=== PATIENT | male | born 1955 | race Caucasian/White ===

== ENCOUNTER 2020-10-17 14:29 | Emergency (ER) | payer OTHER ==
--- NOTE | 2020-10-17 15:10 | EDM.PDOC ---
ED HPI GENERAL MEDICAL PROBLEM - General Stated Complaint: UNRESPONSIVE Time Seen by Provider: 10/17/20 14:30 Source of Information: Reports: EMS History Limitations: Reports: Other - History of Present Illness INITIAL COMMENTS - FREE TEXT/NARRATIVE: Patient brought in in full cardiac arrest. He was driving with his daughter and was not feeling well. She can not equate exactly how he was feeling but he did not appear well. He has a history of heavy drinking and restrictive lung disease. History of atrial fibrillation but not on a blood thinner. He suddenly became unresponsive and turned blue/purple. EMS was called. Police were first on the scene and started CPR. EMS arrived and when they first attempted bagging the patient a large amount of bright red blood came out of the airway. Asystole was noted on the monitor. IO was placed in the right tibia. lucus was placed on the patient and intubation was attempted x 2. Unable to visualize cords due to large amount of bright red blood in the airway. suctioning was started and after three doses of epinephrine in the IO, no change in rhythm the patient was loaded from transport with the bob continuing. Manual bag valve mask ventilation was difficult due to continuous reaccumulation of blood in the airway. at arrival to the ED they had suctioned 500 ml of bright red blood out of the airway. At arrival bob is continuing. No pulses noted. pupils fixed and head and neck mottled and purple. Daughter is with Onset: Sudden Onset Date: 10/17/20 - Related Data Allergies Allergy/AdvReac Type Severity Reaction Status Date / Time No Known Drug Allergies Allergy Other Unverified 12/18/13 18:58 Home Meds: Home Meds Aspirin 325 mg PO DAILY 12/18/13 [History] Nicotine Polacrilex [Nicotine Gum] 1 piece of gum PO ASDIRECTED 12/18/13 [History] Zolpidem [Ambien] 10 mg PO BEDTIME 12/18/13 [History] atorvaSTATin [Lipitor] 10 mg PO BEDTIME 12/18/13 [History] carvediloL [Coreg] 6.25 mg PO BID 12/18/13 [History] trandolapriL [Mavik] 4 mg PO DAILY 12/18/13 [History] Past Medical History Cardiovascular History: Reports: Afib, CAD, Heart Failure, High Cholesterol, Hypertension Other Cardiovascular History: carotid artery stenosis, sleep apnea Respiratory History: Reports: Interstitial Lung Disease, Other (See Below) (oxygen dependent) Neurological History: Reports: CVA, Seizure Social & Family History - Tobacco Use Tobacco Use Status *Q: Former Tobacco User - Alcohol Use Alcohol Use History: Yes Alcohol Use Comment: heavy use ED ROS GENERAL - Review of Systems Review Of Systems: Unable To Obtain Reason Not Obtained: patient is cpr in process ED EXAM, CPR - Physical Exam Exam: See Below Limited By: Respiratory Distress General Appearance: Other (cpr in process) Eye Exam: Bilateral Eye: Other (pupils are fixed, non reactive with bulging of the bilateral globes. ) Throat/Mouth: Perioral Cyanosis, Other (entire head and neck with cyanosis, large amount of blood in the airway that continues to pool upon stopping suctioning) Head: Atraumatic Respiratory Chest: Other (no spontaneous breathing, able to ventilate with bag mask valve) Cardiovascular: Absent Heart Sounds, CPR In Progress GI/Abdominal Exam: Other (obese, distended) Course - Re-Assessments/Exams Free Text/Narrative Re-Assessment/Exam: 10/17/20 15:22 Bob continues with compressions. Did stop and check for pulse. none found. bob continued. Suction of the airway continued, large amount of bright red blood continues to pool. Unable to see vocal cords even with glidescope. Able to bag the patient . mottled head and neck and extremities. 100 cc of blood out of the airway in 5 minutes. asystole best rhythm and been down for 40 minutes. Discussed with daughter, she understands that he suffered a fatal event of bleeding. Probable esophageal varices or dissection of aorta. She agrees to stop CPR. Time of called at 14:40 Departure - Departure Time of Disposition: 14:40 Disposition: 20 Preliminary Cause of *Q: Cardiac Arrest (with possible rupture of large vessel and hemorrhage) Clinical Impression: - Discharge Information
== END 2020-10-18 01:26 | disposition expired ==
LOC: VM.ED 14:29
DX: I46.9 Cardiac arrest, cause unspecified (principal); I48.91 Unspecified atrial fibrillation; I25.10 Atherosclerotic heart disease of native coronary artery without angina pectoris; I11.0 Hypertensive heart disease with heart failure; I50.9 Heart failure, unspecified; Z87.891 Personal history of nicotine dependence; Z79.82 Long term (current) use of aspirin; Z79.899 Other long term (current) drug therapy
CPT/HCPCS: 92950; 99284; 99285